=== PATIENT | male | born 1955 | race Native Hawaiian/Other Pacific Islander ===

== ENCOUNTER → 2023-11-29 16:11 | Outpatient (CLI) | payer MEDICARE, MEDICAID, SELFPAY ==
--- NOTE | 2023-11-29 16:16 | DI.ECHO.S_ITS ---
[facility] : : [address] : : [place] : : [id number] : : Phone: [phone] Echocardiogram Report + + :Name: FRANSISCA POSEY Study Date: 11/29/2023 Height: 68 in : :[facility] ReadingLocation: Weight: 170 lb : : Gender: Male BSA: 1.9 m2 : :: 1955 Age: 68 yrs BP: 132/83 mmHg: :Reason For Study: HEART FAILURE : :Ordering Physician: AMISHA TITUS Performed By: Davis Matthews : :Referring: AMSIHA TITUS : + + Interpretation Summary This is a limited study. 1. The left ventricular contractility is borderline. Estimate ejection fraction is 50 to 55%. There is severe hypokinesis of the mid to distal inferior segment. Mild concentric LVH. 2. The right ventricular contractility is normal. 3. Mild pulmonic insufficiency present 4. No obvious intra masses nor thrombi. 5. No hemodynamically significant pericardial effusion. 6. Low right-sided filling pressures. Conclusion: Low normal left ventricular systolic function with no significant valvular abnormalities Procedure: A two-dimensional transthoracic echocardiogram with color flow and Doppler was performed in limited views only. The study quality was technically good. Comparison is made with the echocardiogram of 05/15/2023. The patient was in normal sinus rhythm during the exam. Left Ventricle: The left ventricle is normal in size. Left ventricular wall thickness is mildly increased. The ejection fraction is estimated to be 50- 55%. There are regional wall motion abnormalities as specified. Mitral Valve: The mitral valve is normal in structure and function. There is trace mitral regurgitation. Aortic Valve: The aortic valve is trileaflet. The aortic valve opens well. No aortic regurgitation is present. Tricuspid Valve: The tricuspid valve is normal in structure and function. There is trace tricuspid regurgitation. The right ventricular systolic pressure is estimated to be at least 21 mmHg based on an estimated right atrial pressure of 3 mm Hg. Pulmonic Valve: There is mild pulmonic regurgitation. Great Vessels: The aortic root is normal size. The dimensions of the ascending aorta are normal. The pulmonary artery is normal size. The IVC is of normal diameter and collapses greater than 50% with a sniff. This suggests a low right atrial pressure of 3 mm Hg. MMode/2D Measurements & Calculations LVIDd: 4.9 cm LVOT diam: 2.2 cm LVIDs: 3.3 cm Ao root diam: 3.1 cm FS: 32.3 % asc Aorta Diam: 3.4 cm EPSS: 0.89 cm IVSd: 1.1 cm LVPWd: 1.1 cm LV garcia. diameter/BSA (cm/m^2): 2.6 LV sys. diameter/BSA (cm/m^2): 1.8 IVC diam: 1.6 cm Doppler Measurements & Calculations TR max gabby: 213.9 cm/sec TR max P.3 mmHg Reading Physician:
== END ==
PROVIDERS: Referring Provider Internal Medicine; Visit Provider Internal Medicine
DX: I37.1 Nonrheumatic pulmonary valve insufficiency (principal); I50.22 Chronic systolic (congestive) heart failure
CPT/HCPCS: 93307